=== PATIENT | female | born 1975 | race African-American/Black ===

== ENCOUNTER 2018-01-15 05:15 | Inpatient (IN) | END 2018-01-15 15:50 | disposition left against medical advice (07) | DRG 203 ==

== ENCOUNTER 2019-01-25 00:58 | Emergency (ER) | payer BC ==
[~2019-01-25] VITALS: Ht 167.6 cm; Wt 71.4 kg
[~2019-01-25 00:58] MED LIST: ASPI-903 PO; ATOR40TA21 PO; CALC1TAB80 PO; ESCI20TA PO
[2019-01-25 01:04] VITALS: Ht 167.6 cm; Wt 71.4 kg
[2019-01-25] MEDS ORDERED: ALBUTEROL 0.083% (NEB) 2.5 MG/3 ML AMP NEB STA (02:44)
[2019-01-25] MEDS ORDERED: BUDESONIDE (NEB) 0.5MG/2ML AMP HHN ONE (03:00)
[2019-01-25] MEDS ORDERED: ALBU18HF INHALATION (04:55)
[2019-01-25] MEDS ORDERED: BUDE6HFA INHALATION (04:55)
[2019-01-25 05:05] VITALS: BP 124/82; PULSE 83; RESP 17
--- NOTE | 2019-01-25 23:56 | ERD ---
ER Documentation Chief Complaint Chief Complaint shortness of breath/asthma x 3 days, run out of med HPI This is a 43-year-old female patient who presents emergency room with complaint of shortness of breath x3 days. Patient is a chronic asthmatic and has run out of her Symbicort and Ventolin which she states keep her very stable. No recent fever, no cough, no sick contacts, no allergen triggers. Patient speaking in clear complete sentences. Patient is alert, awake, appropriate, no stridor, no audible wheeze, no tripoding, NAD. Patient does not smoke, states avoids triggers such as dust, smoke, pets. ROS All systems reviewed and are negative except as per history of present illness. Medications Home Meds Active Scripts Albuterol Sulfate* (Ventolin HFA*) 18 Gm Hfa.aer.ad, 2 PUFF INHALATION Q4H PRN for WHEEZING for 30 Days, #1 INHALER Prov:JOYA MORAN NP 01/25/19 Budesonide-Formoterol Fumarate* (Symbicort*) 160-4.5 Hfa.aer.ad, 1 PUFF INHALATION BID for ASTHMA for 30 Days, #1 EACH Prov:JOYA MORAN NP 01/25/19 Reported Medications Escitalopram Oxalate* (Lexapro*) 20 Mg Tablet, 1 TAB PO DAILY 07/20/12 Aspirin* (Aspirin* Chew) 81 Mg Tab.chew, 1 TAB PO DAILY 07/20/12 Calcium Carbonate/Vitamin D3 (Oysco 500+D Tablet) 1 Tab Tablet, 1 TAB PO DAILY 07/20/12 Atorvastatin (Lipitor) 40 Mg Tablet, 1 TAB PO DAILY 07/20/12 Allergies Allergies: Coded Allergies: No Known Drug Allergies (Verified Allergy, Mild, 07/30/13) PMhx/Soc Anesthesia Reaction: No Hx Neurological Disorder: No Hx Respiratory Disorders: Yes (Asthma) Hx Cardiac Disorders: No Hx Psychiatric Problems: No Hx Miscellaneous Medical Probl: No Hx Alcohol Use: No Hx Substance Use: No Hx Tobacco Use: No Smoking Status: Never smoker FmHx Family History: No diabetes, No coronary disease, No other Physical Exam Vitals Vital Signs Date Temp Pulse Resp B/P (MAP) Pulse Ox O2 O2 Flow FiO2 Time Delivery Rate 01/25/19 97.9 83 17 124/82 95 Room Air 05:05 (96) 01/25/19 85 20 97 21 04:06 01/25/19 78 20 98 21 03:19 01/25/19 97.7 105 18 149/90 96 01:04 (109) Physical Exam Const: No acute distress Head: Atraumatic Eyes: Normal Conjunctiva, PERRL ENT: Normal External Ears, TM clear BL, Nose without congestion, pharynx pink , moist, no lesions, no exudate, no petechiae.. Neck: Full range of motion. No meningismus. No lymphadenopathy, n o thyromegaly Resp: Diffuse expiratory wheezing throughout Cardio: Regular rate and rhythm, no murmurs Abd: Soft, non tender, non distended. Normal bowel sounds Skin: No petechiae or rashes, warm, dry, skin color consistent for ethnicity Ext: No cyanosis, or edema Neur: Awake and alert Psych: Normal Mood and Affect Results 24 hrs Current Medications Medications Dose Sig/Rajiv Start Time Status Last (Trade) Ordered Route PRN Stop Time Admin Dose Reason Admin Albuterol 2.5 mg ONCE STAT 01/25/19 DC 01/25/19 (Proventil NEB 02:44 01/25/19 03:16 0.083% (Neb)) 02:49 Budesonide 0.5 mg ONCE ONCE 01/25/19 DC 01/25/19 (Pulmicort HHN 03:00 01/25/19 04:05 (Neb)) 03:01 Procedures/MDM This is a 43-year-old female patient with chronic asthma that reports to the emergency room with shortness of breath after 3 days without use of her Symbicort or Ventolin. ED COURSE: The patient was stable throughout ED course. DIAGNOSTIC IMAGING: Not indicated PROCEDURES: breathing treatment MEDICATIONS GIVEN: Nebulized albuterol and Pulmicort Patient declines steroid MDM: This patient has chronic asthma and is well informed of necessary self-care. The asthma exacerbation was managed in the usual manner. Wheezing has improved after breathing treatments. We discussed home management of asthma including avoidance of triggers. She has been instructed to return immediately if the warning signs of a serious episode occur. She states she has appointment in 2 days for follow-up with her PMD. The patient clinically looks well, has near normal work of breathing, normal l evel of alertness, normal oxygenation. Patient states she feels improved and safe for discharge. There are none of the following: meningeal signs, worrisome rash, evidence of serious ENT infection, respiratory distress, or evidence of serious bacterial infection by history and exam at this time. Patient has been prescribed with her dose and brand of albuterol and inhaled steroid. Patient states her insurance covers these medications and will potato picker medications upon discharge from ER. DISPOSITION: The patient has been discharge home to follow-up with community physician. Departure Diagnosis: Primary Impression: Asthma Condition: Stable Patient Instructions: Asthma Referrals: [facility] YOU HAVE RECEIVED A MEDICAL SCREENING EXAM AND THE RESULTS INDICATE THAT YOU DO NOT HAVE A CONDITION THAT REQUIRES URGENT TREATMENT IN THE EMERGENCY DEPARTMENT. FURTHER EVALUATION AND TREATMENT OF YOUR CONDITION CAN WAIT UNTIL YOU ARE SEEN IN YOUR DOCTORS OFFICE WITHIN THE NEXT 1-2 DAYS. IT IS YOUR RESPONSIBILITY TO MAKE AN APPOINTMENT FOR FOLOW-UP CARE. IF YOU HAVE A PRIMARY DOCTOR --you should call your primary doctor and schedule an appointment IF YOU DO NOT HAVE A PRIMARY DOCTOR YOU CAN CALL OUR PHYSICIAN REFERRAL HOTLINE AT IF YOU CAN NOT AFFORD TO SEE A PHYSICIAN YOU CAN CHOSE FROM THE FOLLOWING [facility] [address] [facility]. [facility] [address] [facility]. [facility] [address] [facility] [facility] [address] [facility]. [facility] [address] [facility] [facility]. [address] Additional Instructions: Thank you very much for allowing us to participate in your care. Your health and safety is our top priority at [facility]. Call your primary care doctor TOMORROW for an appointment during the next 2-4 days and bring all the information and medications prescribed. Have prescriptions filled and follow precisely the directions on the label. If the symptoms get worse and your provider is unavailable, return to the Emergency Department immediately. JOYA MORAN NP Jan 25, 2019 23:56
== END 2019-01-25 05:05 | disposition home or self-care (01) ==
LOC: FTE 00:58
DX: J45.901 Unspecified asthma with (acute) exacerbation (principal)
CPT/HCPCS: 94640; 94664; Z7610